=== PATIENT | female | born 1990 | race Hispanic/Latino ===

== ENCOUNTER 2017-10-02 20:21 | Emergency (ER) | payer OTHER ==
[2017-10-02 21:21] LABS: ALT (SGPT) 17 U/L (8-55); AST (SGOT) 18 U/L (5-34); Albumin 4.2 g/dL (3.5-5.0); Alkaline Phosphatase 75 U/L (40-150); Anion Gap 14 mmol/L (10-20); BUN (Urea Nitrogen) 7 mg/dL (7.0-18.7); Bilirubin, Total 0.5 mg/dL (0.2-1.2); Calc. Creatinine Clearance 0 mL/min (70-130); Carbon Dioxide 24 mmol/L (22-29); Chloride 103 mmol/L (98-107); Estimated GFR-MDRD 75; Globulin 3.3 g/dL (2.4-3.5); Glucose 104 mg/dL (70-105); Potassium 3.7 mmol/L (3.5-5.1); Protein, Total 7.5 g/dL (6.0-8.3); Sodium 137 mmol/L (136-145)
[2017-10-02] MEDS ORDERED: methylPREDNISolone Sod Succ/PF 125 MG/2 ML VIAL ONE (21:24)
[2017-10-02] MEDS ORDERED: Ondansetron HCl/PF 4 MG/2 ML Vial ONE (21:28)
[2017-10-02 21:37] LABS: #Eosinphils 0.2 thou/uL (0.0-0.7); #Lymphocytes 0.9 thou/uL (1.20-3.40); #Monocytes 0.6 thou/uL (0.11-0.59); #Neutrophils 4.2 thou/uL (1.40-6.50); %Basophils 0.6 % (0.0-1.0); %Eosinophils 3.8 % (0.0-10.0); %Monocytes 10.4 % (0.0-10.0); %Neutrophils 70.2 % (42.0-75.0); Hemoglobin 14.1 g/dL (12.0-16.0); Mean Corpuscular HGB CONC 33.6 g/dL (32.0-36.0); Mean Corpuscular Hemoglobin 30.8 pg (27.0-31.0); Mean Corpuscular Volume 91.6 fl (81.0-99.0); Mean Platelet Volume 9.1 fL (7.4-10.4); PLT Morphology Comment Appears Decreased; Platelet Count 111 thou/uL (130-400); RBC Distribution Width 11.1 % (11.5-14.5); RBC Morphology Normal; Red Blood Cell (RBC) Count 4.57 mill/uL (4.20-5.40)
--- NOTE | 2017-10-02 21:48 | RAD ---
CHEST ONE VIEW: HISTORY: Cough. COMPARISON: None. FINDINGS: The lungs are clear. No pneumothorax or effusion. The cardiac silhouette and mediastinal contour is within normal limits. IMPRESSION: 1. No acute intrathoracic abnormality. 2. Low-grade S-shaped scoliosis, thoracolumbar spine. POS: [facility]
[2017-10-02 22:29] LABS: Bilirubin Negative (Negative); Blood, Urine Negative (Negative); Clarity CLEAR (Clear); Glucose, Urine (Dipstick) Negative (Negative); Leukocyte Negative (Negative); Nitrite Negative (Negative); Protein, Urine (Dipstick) Negative (Neg-Trace); Specific Gravity, Urine 1.012 (1.002-1.036)
[2017-10-02 22:31] LABS: Pregnancy Test - Urine (BHCG) Negative (Negative); Pregu Control Background? CLEAR/WHITE (CLR/WHITE); Pregu Control Bar Appear? YES (CONTROL BAR); Specific Gravity 1.012 (1.002-1.036)
== END 2017-10-02 22:57 | disposition home or self-care (01) ==
LOC: ERS 20:21
DX: J45.901 Unspecified asthma with (acute) exacerbation (principal); B34.9 Viral infection, unspecified
CPT/HCPCS: 71045; 80053; 81003; 81025; 83605; 85025; 87040; 87086; 87804; 96361; 96374; J2405; J2930

== ENCOUNTER 2017-10-04 20:28 | Emergency (ER) | payer OTHER | END 2017-10-04 21:35 | disposition home or self-care (01) | LOC: ERS 20:28 | DX: J06.9 Acute upper respiratory infection, unspecified (principal); F41.9 Anxiety disorder, unspecified; J45.909 Unspecified asthma, uncomplicated; Z79.52 Long term (current) use of systemic steroids; Z79.899 Other long term (current) drug therapy | CPT/HCPCS: 99283 ==

== ENCOUNTER 2020-05-28 16:51 | Emergency (ER) | payer SELFPAY ==
[2020-05-28 17:34] LABS: #Basophils 0.1 thou/uL (0.0-0.2); #Eosinphils 0.3 thou/uL (0.0-0.7); #Lymphocytes 2.3 thou/uL (1.20-3.40); #Monocytes 0.5 thou/uL (0.11-0.59); #Neutrophils 2.9 thou/uL (1.40-6.50); %Basophils 1.3 % (0.0-1.0); %Eosinophils 4.8 % (0.0-10.0); %Lymphocytes 37.7 % (21.0-51.0); %Monocytes 7.9 % (0.0-10.0); %Neutrophils 48.3 % (42.0-75.0); Hemoglobin 14.4 g/dL (12.0-16.0); Mean Corpuscular HGB CONC 33.6 g/dL (32.0-36.0); Mean Corpuscular Hemoglobin 30.2 pg (27.0-31.0); Mean Corpuscular Volume 89.9 fL (78.0-98.0); Mean Platelet Volume 9.3 fL (7.4-10.4); Platelet Count 167 thou/uL (130-400); RBC Distribution Width 11.8 % (11.5-14.5); Red Blood Cell (RBC) Count 4.76 mill/uL (4.20-5.40)
[2020-05-28 17:40] LABS: Bacteria/HPF None Seen HPF (None Seen); Bilirubin Negative (Negative); Blood, Urine Negative (Negative); Clarity Turbid (Clear); Glucose, Urine (Dipstick) 30 mg/dL (Negative); Ketone, Urine Negative (Negative); Leukocyte 75 Leu/uL (Negative); Nitrite Negative (Negative); Protein, Urine (Dipstick) 10 mg/dL (Neg-Trace); RBC/HPF 0-3 HPF (0-3); Specific Gravity, Urine 1.021 (1.002-1.036); Squamous Epithelial 0-3 HPF (0-3); Urobilinogen Normal mg/dL (Less than 2); WBC/HPF None Seen HPF (0-3)
[2020-05-28 17:55] LABS: ALT (SGPT) 13 U/L (8-55); AST (SGOT) 12 U/L (5-34); Albumin 4.2 g/dL (3.5-5.0); Alkaline Phosphatase 68 U/L (40-110); Anion Gap 13 mmol/L (10-20); BUN (Urea Nitrogen) 11 mg/dL (7.0-18.7); Bilirubin, Total 0.3 mg/dL (0.2-1.2); CK (CPK) 44 U/L (29-168); Calc. Creatinine Clearance 0 mL/min (70-130); Calcium 8.8 mg/dL (7.8-10.44); Carbon Dioxide 26 mmol/L (22-29); Chloride 105 mmol/L (98-107); Estimated GFR-MDRD 87; Globulin 2.9 g/dL (2.4-3.5); Glucose 100 mg/dL (70-105); Potassium 3.6 mmol/L (3.5-5.1); Protein, Total 7.1 g/dL (6.0-8.3); Sodium 140 mmol/L (136-145)
--- NOTE | 2020-05-28 19:32 | ULT ---
Exam: Transabdominal pelvic ultrasound HISTORY: Left lower quadrant pain, x19 days. Pain is intermittent. TECHNIQUE: Transabdominal imaging of the pelvis is performed. Ovaries are interrogated with grayscale , color flow, Doppler imaging and spectral waveform analysis. FINDINGS: Uterus is identified. There is heterogeneity of myometrium without discrete myometrial masses. Uterus measures 7.7 x 4.1 x 5.1. Visualized endometrium measures 0.8 cm Right ovary: Normal echotexture, measuring 3.1 x 3.3 x 2.2 cm Left ovary: There is a 2.1 x 1.7 x 1.6 cm hypoechoic focus in the left ovary which may represent a co mplex cyst. Overall, left ovary measures 1.8 x 2.9 x 2.5 cm Free fluid: None Ovarian Doppler: Vascular flow to both ovaries IMPRESSION: 1. Left ovarian cyst. Follow-up ultrasound in 8 weeks to ensure resolution 2. Suboptimal evaluation the myometrium. There is heterogeneity. Nonemergent pelvic MRI if clinically warranted. Transcribed Date/Time: 05/28/2020 7:59 PM
[2020-05-28 19:39] LABS: Pregnancy Test - Urine (BHCG) Negative (Negative); Pregu Control Background? CLEAR/WHITE (CLR/WHITE); Pregu Control Bar Appear? YES (CONTROL BAR); Specific Gravity 1.021 (1.002-1.036)
--- NOTE | 2020-05-28 19:59 | CT ---
Exam: Abdomen CT without contrast Pelvic CT without contrast HISTORY: Left flank pain. COMPARISON: None FINDINGS: Abdomen CT: Lung bases:Clear Heart size: Normal heart size Aorta: Caliber Solid organs: Limited evaluation by the lack of IV contrast. Grossly no solid organ abnormality Lymph nodes: No gastrohepatic, retrocrural or periportal lymphadenopathy Gallbladder: No CT evidence of cholecystitis Mesentery: No mass, lymphadenopathy, free air or free fluid Kidneys: No evidence of right sided obstructive uropathy. There are 1 to 2 mm calculi in the left bill al pelvis. No evidence of hydronephrosis. Left ureter has a normal caliber. No hydroureter, periureteral fat stranding or ureterolithiasis. Alimentary canal: Limited evaluation the lack of oral contrast. No bowel obstruction. Normal ileoceca l junction. Scattered fecal material in a nondistended, nondilated colon. Normal caliber appendix. CT PELVIS: No mass, adenopathy, free air or free fluid. Uterus and adnexal structures are grossly unremarkable Urinary bladder: Normal mucosa. Air in the nondependent portion of the bladder. Correlate for recent Taylor catheterization. Osseous structures: No lytic or blastic lesions IMPRESSION: 1. Nonobstructing calculi in the left intrarenal collecting system. 2. Bilaterally no obstructive uropathy 3. Normal caliber appendix.
[2020-05-28] MEDS ORDERED: Ketorolac Tromethamine 30 MG/ML VIAL ONE (20:31)
== END 2020-05-28 20:50 | disposition home or self-care (01) ==
LOC: ERS 16:51
DX: N83.202 Unspecified ovarian cyst, left side (principal); N20.0 Calculus of kidney; J45.909 Unspecified asthma, uncomplicated; E03.9 Hypothyroidism, unspecified; Z79.899 Other long term (current) drug therapy
CPT/HCPCS: 74176; 76856; 80053; 81003; 81015; 81025; 82550; 85025; 87086; 93976; 96361; 96374; J1885

== ENCOUNTER 2022-05-15 13:51 | Outpatient (CLI) | payer OTHER | END 2022-05-15 13:52 | disposition home or self-care (01) | LOC: BICULT 13:51 | PROVIDERS: ATTEND Nurse Practitioner Family | DX: R10.32 Left lower quadrant pain (principal); N85.8 Other specified noninflammatory disorders of uterus | CPT/HCPCS: 76856 ==